=== PATIENT | male | born 1955 | race Caucasian/White ===

== ENCOUNTER → 2016-10-30 | Outpatient (CLI) | payer OTHER ==
[~2016-10-30] VITALS: Ht 181.6 cm; Wt 140.8 kg
[~2016-10-30] MED LIST: ALBUAER2 INH; CHOL20009 PO; CLR10 PO; CRS10 PO; DRGTP25 TD; ESCI10TA17 PO; GABA-112 PO; HYDR-4079 PO; LOSA100T2 PO; LOSA100T26 PO; LRS10 PO; MOME200A INH; MULTTAB PO; NIZA150C3 PO; NRN/600 PO; NRN100 PO; NRN800 PO; SPRIN/30 INH; VNTHFA/IN INH
[2016-10-30 15:59] VITALS: BP 153/85; PULSE 85; Ht 181.6 cm; Wt 140.8 kg
== END | disposition home or self-care (01) ==
LOC: C.NEUR 13:47
PROVIDERS: ATTEND Internal Medicine Pulmonary Disease
DX: G47.33 Obstructive sleep apnea (adult) (pediatric) (principal); E66.9 Obesity, unspecified; J44.9 Chronic obstructive pulmonary disease, unspecified; J45.909 Unspecified asthma, uncomplicated

== ENCOUNTER → 2016-11-23 | Outpatient (CLI) | payer OTHER ==
--- NOTE | 2016-11-23 14:28 | DIAGNOSTIC IMAGING REPORT ---
RIGHT KNEE 2 VIEWS CLINICAL HISTORY: Right knee pain. FINDINGS: AP and lateral views of the right knee are obtained. No prior studies are available for comparison at the time of dictation. The skeletal structures are well mineralized. No fracture is seen. Mild tricompartmental degenerative joint space narrowing is observed. This is greatest at the patellofemoral joint. A large calcified fabella is noted. Mild soft tissue swelling is present around the knee. No large joint effusion is seen. IMPRESSION: Mild soft tissue swelling with no acute bony abnormality identified. Electronically signed by: Leroy Landry M.D. 11/23/2016 2:27 PM Dictated Date/Time: 11/23/2016 2:26 PM
== END | disposition home or self-care (01) ==
LOC: C.RAD 13:49
PROVIDERS: ATTEND Internal Medicine
DX: M25.561 Pain in right knee (principal)

== ENCOUNTER → 2016-12-22 | Outpatient (CLI) | payer OTHER ==
--- NOTE | 2016-12-22 08:21 | DIAGNOSTIC IMAGING REPORT ---
MRI OF THE RIGHT KNEE WITHOUT CONTRAST CLINICAL HISTORY: Right knee pain status post fall. COMPARISON STUDY: Right knee radiographs November 23, 2016. TECHNIQUE: Utilizing a 1.5 Imani magnet and dedicated coil, multiplanar, multiecho imaging of the right knee was performed without intravenous or intraarticular contrast. FINDINGS: Alignment of the right knee is anatomic. There is a small joint effusion with a small popliteal cyst. There is no marrow edema to suggest a fracture. There is no marrow replacement. The anterior and posterior cruciate ligaments are intact. The lateral collateral ligament complex is intact. There is mild edema and fluid adjacent to the medial collateral ligament. There is no full-thickness tear of the medial collateral ligament. There is minimal signal within the ligament. The lateral meniscus is intact. There is an oblique tear of the posterior horn of the medial meniscus. There is mild chondrosis of the right knee, most pronounced within the medial compartment. IMPRESSION: 1. Oblique tear of the posterior horn of the medial meniscus. 2. No evidence of fracture. 3. Small joint effusion and small popliteal cyst. 4. Findings suggestive of a grade II MCL sprain. Electronically signed by: Johnny Bonilla M.D. 12/22/2016 8:20 AM Dictated Date/Time: 12/22/2016 8:12 AM
== END | disposition home or self-care (01) ==
LOC: C.MRI 06:54
PROVIDERS: ATTEND Orthopaedic Surgery Sports Medicine
DX: S83.241A Other tear of medial meniscus, current injury, right knee, initial encounter (principal); X58.XXXA Exposure to other specified factors, initial encounter; M25.461 Effusion, right knee; M71.21 Synovial cyst of popliteal space [Baker], right knee

== ENCOUNTER → 2017-01-08 | Outpatient (CLI) | payer OTHER | END | disposition home or self-care (01) | LOC: C.CPL 09:58 | PROVIDERS: ATTEND Orthopaedic Surgery Sports Medicine | DX: Z01.810 Encounter for preprocedural cardiovascular examination (principal) ==

== ENCOUNTER 2017-05-07 06:52 | Emergency (ER) | payer OTHER ==
[~2017-05-07] VITALS: Ht 180.3 cm; Wt 144.3 kg
[~2017-05-07 06:52] MED LIST changes: -DRGTP25 TD; -HYDR-4079 PO; -LOSA100T26 PO; -NRN100 PO; -NRN800 PO; -VNTHFA/IN INH
[2017-05-07 06:59] VITALS: TEMP 37; Ht 180.3 cm; Wt 144.3 kg
[2017-05-07] MEDS ORDERED: ALBUT/IPRATROP 3MG/0.5MG NEB 3 ML VIAL INH STA (07:15)
[2017-05-07] MEDS ORDERED: ONDANSETRON INJ 2 MG/ML 2 ML VIAL IV STA (07:15)
[2017-05-07] MEDS ORDERED: SODIUM CHLORIDE 0.9% 1000ML 1,000 ML IV STA (07:15)
[2017-05-07] MEDS: MoRPHine SULFATE 10 MG/ML CARP/VIAL IV PRN ×2 (07:37→09:25)
[2017-05-07 07:47] LABS: BASO % 0.4 %; BASO ABS # 0.05 K/uL (0-0.2); COMPLETE YES; EOS % 2.1 %; HEMATOCRIT 37.6 % (42-52); IG% 0.4 %; LYMPH % 13.8 %; LYMPH ABS # 1.83 K/uL (1.2-3.4); MEAN CORPUSCULAR HEMOGLOBIN 28.9 pg (25-34); MEAN CORPUSCULAR HGB CONC 33.2 g/dl (32-36); MEAN PLATELET VOLUME 9.5 fL (7.4-10.4); MONO % 5.9 %; NEUT % 77.4 %; PLATELET COUNT 234 K/uL (130-400); RED BLOOD COUNT 4.32 M/uL (4.7-6.1)
[2017-05-07] MEDS ORDERED: DRGTP25 TD (07:52)
[2017-05-07] MEDS ORDERED: LOSA100T26 PO (07:52)
[2017-05-07] MEDS ORDERED: HYDR-4079 PO (07:52)
[2017-05-07] MEDS ORDERED: NRN100 PO (07:52)
[2017-05-07] MEDS ORDERED: NRN800 PO (07:52)
[2017-05-07] MEDS ORDERED: VNTHFA/IN INH (07:53)
[2017-05-07 08:04] LABS: BUN/CREATININE RATIO 15.3 (10-20); CALCIUM 9.1 mg/dl (8.5-10.1); CREATININE 0.93 mg/dl (0.60-1.40); POTASSIUM 4.4 mmol/L (3.5-5.1)
--- NOTE | 2017-05-07 09:12 | DIAGNOSTIC IMAGING REPORT ---
CHEST 2 VIEWS ROUTINE CLINICAL HISTORY: 61 years-old Male presenting with CHEST PAIN. TECHNIQUE: PA and lateral views of the chest were obtained. COMPARISON: 10/28/2015. FINDINGS: Cardiomediastinal silhouette normal. Minimal bandlike opacities at the left lung base, likely atelectasis. Pleural spaces clear. Osseous structures and upper abdomen normal. IMPRESSION: 1. Minimal left basilar atelectasis suspected. Electronically signed by: Freedom Trejo M.D. 05/07/2017 9:11 AM Dictated Date/Time: 05/07/2017 9:10 AM
--- NOTE | 2017-05-07 09:12 | DIAGNOSTIC IMAGING REPORT ---
THORACIC SPINE 3 VIEWS ROUTINE HISTORY:61 yearsMalethoracic back pain COMPARISON: Chest radiographs of same day TECHNIQUE: Frontal and lateral views of the thoracic spine FINDINGS: 12 rib-bearing thoracic-type vertebral segments are present. The vertebral body heights are well-maintained without compression deformity. There is intervertebral disc space narrowing and endplate spurring of the midthoracic spine. The imaged lung swan are clear. IMPRESSION: 1. No acute fracture or dislocation identified. 2. Intervertebral disc space narrowing and endplate spurring involves the mid thoracic spine. The above report was generated using voice recognition software. It may contain grammatical, syntax or spelling errors. Electronically signed by: Caleb Mauro M.D. 05/07/2017 9:11 AM Dictated Date/Time: 05/07/2017 9:09 AM
[2017-05-07 10:04] VITALS: BP 122/69; PULSE 86; O2SAT 94
--- NOTE | 2017-05-07 14:12 | EMERGENCY ROOM VISIT NOTE ---
ED Visit Note First contact with patient: 07:02 Chief Complaint: Upper back pain. History of Present Illness: Mr. Arvizu is a 61 year-old white male who ambulates into the ED accompanied by his complaining of thoracic pain. Historically patient reports lumbar disc disease and hypertension. Patient reports a gradual onset of severe pain thoracic back pain that started approximately 2 days ago while he was at rest. He reports the initial discomfort was mild and has gradually increased in intensity. He describes his discomfort as a cramping sensation between the shoulder blades. He rates his discomfort 9/10. The pain is radiating superior into the base of the cervical spine. His pain worsens with movement and deep inspiration. He has not identified any alleviating factors related to the pain. He reports he is on a fentanyl patch for his lumbar back pain and has breakthrough Vicodin which has offered minimal relief. Additionally he reports today he he awoke from sleep and was congested and coughing. Additionally patient reports 2 days ago he developed a right-sided sore throat. He reports initially it was mild but gradually increased in intensity. By the second day of his illness he reported he had throat discomfort bilaterally. He describes this as an achy sensation. He rates his discomfort 6/10. The pain is nonradiating. The pain worsens with swallowing and cough. He has not identified any alleviating factors related to the pain. He is taken medications for thoracic pain but no specific medications for his throat discomfort. While performing a review of systems see also reports he has a tightness sensation in his upper chest bilaterally. He rates this discomfort 1/10. His pain is nonradiating. He has not identified any aggravating or alleviating factors related to this pain. He has not taken any medication for this pain prior to arrival at the hospital. Associated with his symptoms as previously noted he is having sinus congestion, a mildly productive cough, He denies fevers, chills, sweats, skin eruptions, skin color changes, headache, dizziness, lightheadedness, voice changes, drooling, inability to swallow, neck pain/stiffness, hemoptysis, palpitations, orthopnea, dependent edema, previous clots, claudication, cramping, abdominal pain, nausea, vomiting, decreased appetite, extremity weakness/numbness/tingling. Review of Systems: As noted above in history of present illness. All body systems were reviewed and found to be negative as noted above. Past Medical History: As previously noted, asthma, bronchitis, pneumonia, emphysema, anxiety, depression, status post unspecified nasal surgery, tonsillectomy, unspecified knee arthroplasty, right shoulder rotator cuff repair , multiple lumbar surgeries, appendectomy, lipoma removal, carpal tunnel repair. Current Medications: Medications Dose Route/Sig Max Daily Dose Days Date Category Dose Instructions Ventolin Hfa (Albuterol) 200 Puffs/59378 Mcg Aers 2 Puffs INH Q4 PRN 05/07/17 Reported Gabapentin 800 Mg Tab 800 Mg PO TID 05/07/17 Reported TAKE ALONG WITH ONE 100MG CAPSULE TO EQUAL 900MG PER DOSE. Gabapentin 100 Mg Cap 100 Mg PO TID 05/07/17 Reported TAKE ALONE WITH ONE 800MG CAPSULE TO EQUAL 900MG PER DOSE Fentanyl 25 Mcg Tdsy 25 Mcg TD Q72HRS 05/07/17 Reported [place] 10MG/325MG (Acetaminophen/Hydrocodone Bitart) Tab 1 Tab PO Q4H PRN 05/07/17 Reported PRN PAIN Hyzaar 12.5MG/100MG (Hctz/Losartan) 1 Tab Tab 1 Tab PO DAILY 05/07/17 Reported Claritin (Loratadine) 10 Mg Tab 10 Mg PO DAILY 10/28/15 Reported Baclofen 10 Mg Tab 5-10 Mg PO Q8 10/28/15 Reported Dulera 200/5 Mcg (Mometasone Furoate-Formoterol) 1 Aer Aer 2 Puffs INH BID 30 10/28/15 Reported Crestor (Rosuvastatin Calcium) 10 Mg Tab 1 Tab PO DAILY 08/06/14 Reported Mvi With Minerals (Multivitamins/Minerals) Tab 1 Tab PO DAILY 02/23/14 Reported Vitamin D (Cholecalciferol) 2,000 Unit Tab 2,000 Mg PO BID 02/23/14 Reported Nizatidine 150 Mg Cap 150 Mg PO BID 02/23/14 Reported Spiriva Handihaler (Tiotropium [place]) 30 Puff/540 Mcg Aerp 1 Cap INH DAILY 03/03/12 Reported Lexapro (Escitalopram Oxalate) 10 Mg Tab 10 Mg PO DAILY 12/07/08 Reported Allergies to Medications: Patient denies. Social History: Patient is currently retired; he lives with his and feels safe in his home environment; he denies tobacco use and admits to alcohol use. Physical Examination: Vital Signs: Date Time Temp Pulse Resp B/P (MAP) Pulse Ox O2 Delivery O2 Flow Rate FiO2 05/07/17 10:04 86 18 122/69 94 05/07/17 08:07 86 18 126/69 93 Room Air 05/07/17 07:24 79 05/07/17 06:59 37.0 86 18 117/68 94 Room Air GENERAL: 61-year-old male in mild to moderate distress due to pain, nontoxic- appearing, afebrile and hemodynamically stable. NEUROLOGICAL: Awake, alert and oriented to person, place and time. Answering questions appropriately and following commands. Normal gait. Good hand eye coordination. SKIN: Warm, dry and pink. No soft tissue eruptions or trauma noted. HEENT: Atraumatic and normocephalic. Mild erythema over the frontal maxillary sinuses. Auditory congestion. PERRLA. Sclera white and conjunctiva pink. Oral cavity moist and pink. Airway is patent. Pharynx is nonerythematous or edematous. Speech normal. No lymphadenopathy. Trachea midline. No jugular venous distention. No carotid bruits. BACK: No tenderness over the bony spine cervical, thoracic and lumbar. No tenderness over the thoracic spine, no bony deformity, bony crepitus, step- offs. Moderate tenderness with spasm throughout the paraspinous muscles and the thoracic spine. No CVA tenderness. THORAX: Lungs sounds are clear to auscultation but decreased in all bases. Equal bilaterally with symmetrical chest wall. No wheezing, rales or rhonchi. No crepitus, tenderness, subcutaneous air or deformities noted. No increased respiratory effort or rate. HEART: Regular rate and rhythm. No gallops, rubs or murmurs are appreciated. No lifts, heaves or thrills. PMI is not displaced. ABDOMEN: Obese, soft and nontender. Positive bowel sounds in all quadrants. No guarding, rigidity or organomegaly. EXTREMITIES: Moves all extremities well on command and with purpose. All distal neurovascular statuses are intact and equal bilaterally. No dependent edema or calf tenderness/cords. ED Course: Patient is assessed as noted above. Laboratory Testing: Test 05/07/17 07:34 05/07/17 07:41 Range/Units White Blood Count 13.30 4.8-10.8 K/uL Red Blood Count 4.32 4.7-6.1 M/uL Hemoglobin 12.5 14.0-18.0 g/dL Hematocrit 37.6 42-52 % Mean Corpuscular Volume 87.0 80-100 fL Mean Corpuscular Hemoglobin 28.9 25-34 pg Mean Corpuscular Hemoglobin Concent 33.2 32-36 g/dl Platelet Count 234 130-400 K/uL Mean Platelet Volume 9.5 7.4-10.4 fL Neutrophils (%) (Auto) 77.4 % Lymphocytes (%) (Auto) 13.8 % Monocytes (%) (Auto) 5.9 % Eosinophils (%) (Auto) 2.1 % Basophils (%) (Auto) 0.4 % Neutrophils # (Auto) 10.31 1.4-6.5 K/uL Lymphocytes # (Auto) 1.83 1.2-3.4 K/uL Monocytes # (Auto) 0.78 0.11-0.59 K/uL Eosinophils # (Auto) 0.28 0-0.5 K/uL Basophils # (Auto) 0.05 0-0.2 K/uL RDW Standard Deviation 43.5 36.4-46.3 fL RDW Coefficient of Variation 13.6 11.5-14.5 % Immature Granulocyte % (Auto) 0.4 % Immature Granulocyte # (Auto) 0.05 0.00-0.02 K/uL Sodium Level 140 136-145 mmol/L Potassium Level 4.4 3.5-5.1 mmol/L Chloride Level 105 98-107 mmol/L Carbon Dioxide Level 30 21-32 mmol/L Anion Gap 5.0 3-11 mmol/L Blood Urea Nitrogen 14 7-18 mg/dl Creatinine 0.93 0.60-1.40 mg/dl Est Creatinine Clear Calc Drug Dose 122.9 ml/min Estimated GFR () 103.1 Estimated GFR (Non- 88.9 BUN/Creatinine Ratio 15.3 10-20 Random Glucose 121 70-99 mg/dl Calcium Level 9.1 8.5-10.1 mg/dl Total Bilirubin 0.5 0.2-1 mg/dl Direct Bilirubin 0.1 0-0.2 mg/dl Aspartate Amino Transf (AST/SGOT) 32 15-37 U/L Alanine Aminotransferase (ALT/SGPT) 42 12-78 U/L Alkaline Phosphatase 92 45-117 U/L Total Protein 8.1 6.4-8.2 gm/dl Albumin 3.8 3.4-5.0 gm/dl Lipase 158 73-393 U/L Bedside Troponin I < 0.030 0-0.045 ng/ml Chest X-Rays: Were read by myself and the radiologist showing no acute infiltrates, effusions or pneumothorax. Normal heart silhouette and bony structures. Minimal left basilar atelectasis. Thoracic Spine X-Rays: Were read by myself and the radiologist showing no acute fractures or dislocations. Intervertebral disc narrowing and endplate spurring of the midthoracic spine was noted. EKG: Was read by myself and reviewed with Dr. lockhart her; shows normal sinus rhythm with a ventricular rate of 77 bpm. Normal axis, intervals and complexes. No acute ST changes indicating ischemia, injury or infarction. This was compared with a previous from February 2013 and no acute changes were noted. Patient was hydrated with normal saline and he initially received 6 mg of morphine IV for pain and 4 mg of Zofran. Patient was reassessed multiple times during his stay in the emergency department and received an additional 6 mg of morphine IV for pain. Patient's case was reviewed with Dr. Wilkins; we agreed on diagnostic approach, treatment, disposition and plan. Patient was educated about today's findings and instructed on his treatment plan ; he verbalizes understanding and agreement with this plan. Clinical Impression: Acute thoracic back pain. Pharyngitis. Upper chest tightness. Decision-Making: Initially my differential diagnosis I considered acute coronary syndrome, thoracic aneurysm, pneumothorax, pneumonia, pulmonary embolism, musculoskeletal disorder and other causes. Disposition: Patient discharged home in stable condition; prior to departure he was reassessed and subjectively reported he was feeling better and rated his discomfort 6/10. Plan: Patient was encouraged to continue his current medications as prescribed. Patient was encouraged to continue his Vicodin for breakthrough pain. Patient was encouraged to call his PCP for recheck if no better in 3-4 days. Patient was encouraged return the ED for worsening/uncontrolled pain, fevers, shortness of breath, worsening chest discomfort, inability to swallow, any new/ concerning symptoms.
== END 2017-05-07 10:06 | disposition home or self-care (01) ==
LOC: C.EDB 06:53 → C.EDA 10:06
DX: M54.6 Pain in thoracic spine (principal); J02.9 Acute pharyngitis, unspecified; R07.89 Other chest pain; J45.909 Unspecified asthma, uncomplicated; F41.9 Anxiety disorder, unspecified; F32.9 Major depressive disorder, single episode, unspecified

== ENCOUNTER → 2017-09-06 | Outpatient (CLI) | payer OTHER ==
[~2017-09-06] MED LIST changes: -ALBUAER2 INH; +DRGTP25 TD; -GABA-112 PO; +HYDR-4079 PO; -LOSA100T2 PO; +LOSA100T33 PO; -NRN/600 PO; +NRN100 PO; +NRN800 PO; +VNTHFA/IN INH
[2017-09-06 12:18] LABS: BASO % 0.6 %; BASO ABS # 0.05 K/uL (0-0.2); COMPLETE YES; EOS % 4.4 %; HEMATOCRIT 37.1 % (42-52); IG% 0.3 %; LYMPH % 29.1 %; LYMPH ABS # 2.26 K/uL (1.2-3.4); MEAN CELL VOLUME 88.8 fL (80-100); MEAN CORPUSCULAR HEMOGLOBIN 28.9 pg (25-34); MEAN CORPUSCULAR HGB CONC 32.6 g/dl (32-36); MEAN PLATELET VOLUME 10.1 fL (7.4-10.4); MONO % 6.2 %; NEUT % 59.4 %; PLATELET COUNT 236 K/uL (130-400); RED BLOOD COUNT 4.18 M/uL (4.7-6.1); WHITE BLOOD COUNT 7.76 K/uL (4.8-10.8)
[2017-09-06 13:17] LABS: ESTIMATED AVERAGE GLUCOSE 123 mg/dl; HA1C FLAG Normal (Normal)
[2017-09-06 17:54] LABS: URINE APPEARANCE CLEAR (CLEAR); URINE BILIRUBIN NEG (NEG); URINE COLOR DK YELLOW; URINE NITRITE NEG (NEG); URINE SPECIFIC GRAVITY 1.019 (1.000-1.030); UROBILINOGEN NEG (NEG); ZZUR CULT IF INDIC CLEAN CATCH NO
[2017-09-06 17:57] LABS: MANUAL MICROSCOPIC REQUIRED? NO; REVIEW REQ? NO
[2017-09-06 18:37] LABS: ALKALINE PHOSPHATASE 95 U/L (45-117); ALT/SGPT 60 U/L (12-78); AST/SGOT 47 U/L (15-37); BLOOD UREA NITROGEN 16 mg/dl (7-18); BUN/CREATININE RATIO 16.4 (10-20); CALCIUM 9.2 mg/dl (8.5-10.1); CARBON DIOXIDE 27 mmol/L (21-32); CHLORIDE 107 mmol/L (98-107); CREATININE 0.95 mg/dl (0.60-1.40); GLUCOSE 101 mg/dl (70-99); HDL CHOLESTEROL 52 mg/dl; POTASSIUM 4.8 mmol/L (3.5-5.1); SODIUM 141 mmol/L (136-145)
[2017-09-06 18:46] LABS: ALB/GLOB RATIO 0.9 (0.9-2); CHOLESTEROL 154 mg/dl (0-200); LDL CHOLESTEROL CALCULATED 78 mg/dl; PROSTATE SPECIFIC ANTIGEN 0.811 ng/ml (0.000-4.000); TRIGLYCERIDES 120 mg/dl (0-150); VERY LOW DENSITY LIPOPROT CALC 24 mg/dl
== END | disposition home or self-care (01) ==
LOC: C.LABBFT 11:07
PROVIDERS: ATTEND Internal Medicine
DX: R73.03 Prediabetes (principal); E78.5 Hyperlipidemia, unspecified; Z12.5 Encounter for screening for malignant neoplasm of prostate; E66.9 Obesity, unspecified; E55.9 Vitamin D deficiency, unspecified

== ENCOUNTER → 2017-11-02 | Outpatient (CLI) | payer OTHER ==
[~2017-11-02] VITALS: Ht 180.3 cm; Wt 144.7 kg
[2017-11-02 12:31] VITALS: BP 167/85; PULSE 118; Ht 180.3 cm; Wt 144.7 kg
== END | disposition home or self-care (01) ==
LOC: C.NEUR 12:09
PROVIDERS: ATTEND Internal Medicine Pulmonary Disease
DX: G47.33 Obstructive sleep apnea (adult) (pediatric) (principal); E66.9 Obesity, unspecified; Z68.41 Body mass index [BMI] 40.0-44.9, adult; J44.9 Chronic obstructive pulmonary disease, unspecified; F32.9 Major depressive disorder, single episode, unspecified; E55.9 Vitamin D deficiency, unspecified; R73.03 Prediabetes; Z87.891 Personal history of nicotine dependence; Z79.899 Other long term (current) drug therapy